=== PATIENT | male | born 1955 | race African-American/Black ===

== ENCOUNTER 2016-06-10 01:49 | Emergency (ER) | payer OTHER ==
[2016-06-10] MEDS ORDERED: Nitroglycerin 0.4 MG TAB (25 Tab Bottle) ONE (01:57)
[2016-06-10] MEDS ORDERED: Sodium Chloride 0.9% 1,000 ML ONE (02:12)
[2016-06-10 02:16] LABS: #Basophils 0.1 thou/uL (0.0-0.2); #Eosinphils 0.1 thou/uL (0.0-0.7); #Lymphocytes 3.1 thou/uL (1.20-3.40); #Monocytes 0.5 thou/uL (0.11-0.59); #Neutrophils 4.6 thou/uL (1.40-6.50); %Basophils 1.5 % (0.0-1.0); %Eosinophils 1.3 % (0.0-10.0); %Monocytes 5.4 % (0.0-10.0); %Neutrophils 54.7 % (42.0-75.0); Hemoglobin 15.5 g/dL (14.0-18.0); Mean Corpuscular HGB CONC 33.1 g/dL (32.0-36.0); Mean Corpuscular Volume 93.6 fl (80.0-94.0); Mean Platelet Volume 9.3 fL (7.4-10.4); Platelet Count 200 thou/uL (130-400); RBC Distribution Width 12.2 % (11.5-14.5); White Blood Cell (WBC) Count 8.4 thou/uL (4.8-10.8)
[2016-06-10 02:29] LABS: ALT (SGPT) 25 U/L (0-55); AST (SGOT) 35 U/L (5-34); Albumin 3.8 g/dL (3.4-4.8); Alkaline Phosphatase 103 U/L (40-150); Anion Gap 16 mmol/L (10-20); BUN (Urea Nitrogen) 11 mg/dL (8.4-25.7); Bilirubin, Total 0.4 mg/dL (0.2-1.2); CK (CPK) 673 U/L (30-200); Calc. Creatinine Clearance 0 mL/min (70-130); Calcium 8.9 mg/dL (7.8-10.44); Carbon Dioxide 21 mmol/L (23-31); Chloride 104 mmol/L (98-107); Estimated GFR-MDRD 59; Globulin 3.9 g/dL (2.4-3.5); Glucose 96 mg/dL (80-115); Potassium 3.8 mmol/L (3.5-5.1); Protein, Total 7.7 g/dL (5.8-8.1); Sodium 137 mmol/L (136-145)
[2016-06-10 02:38] LABS: CKMB 29.9 ng/mL (0-6.6); Troponin I 1.358 ng/mL (< 0.028)
[2016-06-10 02:48] LABS: PTT 26.4 SEC (22.9-36.1); Prothrombin Time 13.1 SEC (12.0-14.7)
[2016-06-10] MEDS ORDERED: Heparin 5,000 UNITS/ML VIAL ONE ×2 (02:58→03:09)
[2016-06-10] MEDS ORDERED: Heparin 20,000 units/D5W 500 ML ONE (02:59)
--- NOTE | 2016-06-10 09:01 | RAD ---
PORTABLE CHEST 1 VIEW: Date: 06/10/16 Time: 0203 hours HISTORY: Chest pain, coronary artery disease, hypertension. FINDINGS: Comparison made with exam of 08/17/15. The heart size is normal. The aorta is tortuous. The lungs are well expanded without focal areas of consolidation, pneumothorax, or pleural effusions. IMPRESSION: No radiographic evidence of acute cardiopulmonary process. POS: [facility]
== END 2016-06-10 05:45 | disposition short-term general hospital (02) ==
LOC: NAV ERS 01:49
DX: I21.4 Non-ST elevation (NSTEMI) myocardial infarction (principal); E78.5 Hyperlipidemia, unspecified; E78.00 Pure hypercholesterolemia, unspecified; I10 Essential (primary) hypertension; I25.10 Atherosclerotic heart disease of native coronary artery without angina pectoris; Z79.899 Other long term (current) drug therapy
CPT/HCPCS: 71010; 80053; 82553; 84484; 85025; 85610; 85730; 93005; 96361; 96365; 96366; 96375; J1644; J2270; J7050

== ENCOUNTER 2016-06-26 09:51 | Emergency (ER) | payer OTHER | END 2016-06-26 10:40 | disposition home or self-care (01) | LOC: NAV ERS 09:51 | DX: G89.18 Other acute postprocedural pain (principal); I25.2 Old myocardial infarction; I25.10 Atherosclerotic heart disease of native coronary artery without angina pectoris; E78.5 Hyperlipidemia, unspecified; I10 Essential (primary) hypertension; Z87.891 Personal history of nicotine dependence; Z79.82 Long term (current) use of aspirin; Z79.899 Other long term (current) drug therapy | CPT/HCPCS: 99284 ==

== ENCOUNTER 2016-11-27 08:05 | Emergency (ER) | payer OTHER ==
[2016-11-27] MEDS ORDERED: cefTRIAXone\\ROCEPHIN 2 GM VIAL ONE (08:40)
[2016-11-27] MEDS ORDERED: methylPREDNISolone Sod Succ/PF 125 MG/2 ML VIAL ONE (08:41)
[2016-11-27] MEDS ORDERED: Sodium Chloride 0.9% 100 ML ONE (08:42)
[2016-11-27] MEDS ORDERED: Sodium Chloride 0.9% 0 ML ONE (08:42)
[2016-11-27 08:43] LABS: #Basophils 0.1 thou/uL (0.0-0.2); #Eosinphils 0.2 thou/uL (0.0-0.7); #Lymphocytes 3.4 thou/uL (1.20-3.40); #Monocytes 0.7 thou/uL (0.11-0.59); #Neutrophils 3.5 thou/uL (1.40-6.50); %Basophils 1.3 % (0.0-1.0); %Eosinophils 2.3 % (0.0-10.0); %Lymphocytes 43.3 % (21.0-51.0); %Monocytes 8.9 % (0.0-10.0); %Neutrophils 44.3 % (42.0-75.0); Hemoglobin 15.5 g/dL (14.0-18.0); Mean Corpuscular HGB CONC 32.1 g/dL (32.0-36.0); Mean Corpuscular Hemoglobin 28.6 pg (27.0-31.0); Mean Corpuscular Volume 89.1 fl (80.0-94.0); Mean Platelet Volume 7.6 fL (7.4-10.4); Platelet Count 284 thou/uL (130-400); RBC Distribution Width 13.9 % (11.5-14.5); Red Blood Cell (RBC) Count 5.44 mill/uL (4.70-6.10); White Blood Cell (WBC) Count 7.9 thou/uL (4.8-10.8)
[2016-11-27 08:55] LABS: Anion Gap 13 mmol/L (10-20); BUN (Urea Nitrogen) 15 mg/dL (8.4-25.7); Calc. Creatinine Clearance 0 mL/min (70-130); Calcium 9.5 mg/dL (7.8-10.44); Carbon Dioxide 25 mmol/L (23-31); Chloride 109 mmol/L (98-107); Estimated GFR-MDRD 55; Glucose 115 mg/dL (80-115); Potassium 4.3 mmol/L (3.5-5.1); Sodium 143 mmol/L (136-145)
--- NOTE | 2016-11-27 09:03 | RAD ---
AP VIEW OF THE CHEST: INDICATION: Cough with hemoptysis. COMPARISON: Prior exam dated 06/15/16. IMPRESSION: No acute cardiopulmonary abnormality. COMMENTS: Midline sternotomy changes are stable. Previously seen right subclavian central venous catheter is removed. No airspace consolidation, pleural effusion, or pneumothorax is evident. No acute osseous abnormality is evident. POS: [facility]
== END 2016-11-27 09:30 | disposition home or self-care (01) ==
LOC: NAV ERS 08:05
DX: J20.9 Acute bronchitis, unspecified (principal); I25.2 Old myocardial infarction; I25.10 Atherosclerotic heart disease of native coronary artery without angina pectoris; E78.5 Hyperlipidemia, unspecified; I10 Essential (primary) hypertension; Z87.891 Personal history of nicotine dependence; Z79.82 Long term (current) use of aspirin; Z79.899 Other long term (current) drug therapy
CPT/HCPCS: 36415; 71010; 80048; 85025; 96365; 96375; J0696; J2930; J7050; J7620

== ENCOUNTER 2017-05-19 12:33 | Emergency (ER) | payer OTHER ==
[2017-05-19] MEDS ORDERED: Colchicine 0.6 MG TAB ONE ×2 (12:49)
== END 2017-05-19 12:59 | disposition home or self-care (01) ==
LOC: NAV ERS 12:33
DX: M10.9 Gout, unspecified (principal); K21.9 Gastro-esophageal reflux disease without esophagitis; I25.2 Old myocardial infarction; I25.10 Atherosclerotic heart disease of native coronary artery without angina pectoris; E78.5 Hyperlipidemia, unspecified; I10 Essential (primary) hypertension; G47.30 Sleep apnea, unspecified; Z79.82 Long term (current) use of aspirin; Z79.899 Other long term (current) drug therapy
CPT/HCPCS: 99283

== ENCOUNTER 2018-08-27 06:31 | Emergency (ER) | payer OTHER ==
[2018-08-27] MEDS ORDERED: Adacel (T-DAP) 0.5 ML SYRINGE ONE (06:51)
[2018-08-27] MEDS ORDERED: Lidocaine 1% (PF) 30 ML VIAL ONE (07:18)
[2018-08-27] MEDS ORDERED: Bacitracin 1 PK ONE (07:39)
--- NOTE | 2018-08-27 08:30 | RAD ---
RIGHT FINGER THREE VIEWS: INDICATIONS: Smashed index finger between car ramp. COMPARISON: None. FINDINGS: There is a comminuted distal tuft fracture involving the right index finger. There is fracture exten aram up to the base of the distal phalanx, without definite extension into the DIP articular surface. IMPRESSION: Comminuted distal phalangeal fracture of the right index finger. POS: [facility]
== END 2018-08-27 08:02 | disposition home or self-care (01) ==
LOC: NAV ERS 06:31
DX: S67.190A Crushing injury of right index finger, initial encounter (principal); S62.660A Nondisplaced fracture of distal phalanx of right index finger, initial encounter for closed fracture; K21.9 Gastro-esophageal reflux disease without esophagitis; I25.2 Old myocardial infarction; I25.10 Atherosclerotic heart disease of native coronary artery without angina pectoris; E78.5 Hyperlipidemia, unspecified; I10 Essential (primary) hypertension; G47.30 Sleep apnea, unspecified; Z79.899 Other long term (current) drug therapy; Z79.82 Long term (current) use of aspirin; W23.0XXA Caught, crushed, jammed, or pinched between moving objects, initial encounter
CPT/HCPCS: 12001; 90471; 90715; J2001

== ENCOUNTER 2018-09-12 15:51 | Emergency (ER) | payer OTHER ==
[2018-09-12] MEDS ORDERED: Bacitracin 1 PK ONE (16:13)
== END 2018-09-12 16:20 | disposition home or self-care (01) ==
LOC: NAV ERS 15:51
DX: S61.210D Laceration without foreign body of right index finger without damage to nail, subsequent encounter (principal); K21.9 Gastro-esophageal reflux disease without esophagitis; I25.2 Old myocardial infarction; I25.10 Atherosclerotic heart disease of native coronary artery without angina pectoris; E78.5 Hyperlipidemia, unspecified; I10 Essential (primary) hypertension; G47.30 Sleep apnea, unspecified; Z79.899 Other long term (current) drug therapy; Z79.82 Long term (current) use of aspirin

== ENCOUNTER 2019-03-12 11:13 | Emergency (ER) | payer OTHER ==
[2019-03-12] MEDS ORDERED: Ondansetron PF 4 MG/2 ML Vial ONE (11:39)
--- NOTE | 2019-03-12 12:17 | RAD ---
AP CHEST: Date: 03/12/2019 INDICATION: Dyspnea. COMPARISON: 11/27/16. FINDINGS: Lungs are clear of infiltrate. Vascular markings normal. Heart size within normal range. Postop liz otomy changes are noted. IMPRESSION: No acute lung process. POS: [facility]
[2019-03-12 12:23] LABS: Lactic Acid 2.3 mmol/L (0.5-2.2)
[2019-03-12 12:26] LABS: ALT (SGPT) 24 U/L (8-55); AST (SGOT) 27 U/L (5-34); Albumin 3.8 g/dL (3.4-4.8); Alkaline Phosphatase 85 U/L (40-110); Anion Gap 15 mmol/L (10-20); BUN (Urea Nitrogen) 16 mg/dL (8.4-25.7); Bilirubin, Total 0.5 mg/dL (0.2-1.2); Calc. Creatinine Clearance 0 mL/min (70-130); Calcium 9.4 mg/dL (7.8-10.44); Carbon Dioxide 24 mmol/L (23-31); Chloride 104 mmol/L (98-107); Estimated GFR-MDRD 55; Globulin 3.6 g/dL (2.4-3.5); Glucose 120 mg/dL (80-115); Potassium 4.4 mmol/L (3.5-5.1); Protein, Total 7.4 g/dL (5.8-8.1); Sodium 139 mmol/L (136-145)
[2019-03-12 12:31] LABS: Hemoglobin 15.1 g/dL (14.0-18.0); MDiff Complete? YES; Mean Corpuscular HGB CONC 31.9 g/dL (32.0-36.0); Mean Corpuscular Hemoglobin 30.1 pg (27.0-31.0); Mean Corpuscular Volume 94.5 fL (78.0-98.0); Mean Platelet Volume 8.9 fL (7.4-10.4); Platelet Count 202 thou/uL (130-400); Red Blood Cell (RBC) Count 5.01 mill/uL (4.70-6.10); White Blood Cell (WBC) Count 5.9 thou/uL (4.8-10.8)
[2019-03-12 12:32] LABS: Lymphocytes 47 % (21-51); Monocytes 4 % (0-10); Neutrophil 49 % (42-75); Platelet Morphology Comment Appears Adequate
[2019-03-12] MEDS ORDERED: Benzonatate 100 MG CAP ONE (12:59)
[2019-03-12] MEDS ORDERED: Azithromycin 250 MG TAB ONE (12:59)
[2019-03-12] MEDS ORDERED: predniSONE 20 MG TAB ONE (12:59)
[2019-03-12 13:24] LABS: CKMB 15.2 ng/mL (0-6.6)
== END 2019-03-12 13:21 | disposition home or self-care (01) ==
LOC: NAV ERS 11:13
DX: R05 Cough (principal); E86.0 Dehydration; R79.89 Other specified abnormal findings of blood chemistry; R11.10 Vomiting, unspecified; K21.9 Gastro-esophageal reflux disease without esophagitis; I25.2 Old myocardial infarction; I25.10 Atherosclerotic heart disease of native coronary artery without angina pectoris; E78.5 Hyperlipidemia, unspecified; E78.00 Pure hypercholesterolemia, unspecified; I10 Essential (primary) hypertension; G47.30 Sleep apnea, unspecified; Z77.22 Contact with and (suspected) exposure to environmental tobacco smoke (acute) (chronic); Z95.1 Presence of aortocoronary bypass graft; Z79.82 Long term (current) use of aspirin; Z79.899 Other long term (current) drug therapy
CPT/HCPCS: 71045; 80053; 82553; 83605; 84484; 85025; 93005; 94640; 94760; 96374; J2405; J7512; J7620

== ENCOUNTER 2019-08-22 06:23 | Emergency (ER) | payer OTHER ==
[2019-08-22] MEDS ORDERED: Propofol 1,000 MG/100 ML VIAL IV ONE (06:58)
[2019-08-22] MEDS ORDERED: Magnesium 2 GM/50 ML BAG (IN WATER) ONE (07:11)
[2019-08-22 07:17] LABS: INR-International Normal Ratio 1.1; PTT 25.3 sec (22.9-36.1); Prothrombin Time 14.3 sec (12.0-14.7)
[2019-08-22 07:19] LABS: #Basophils 0.1 thou/uL (0.0-0.2); #Eosinphils 0.4 thou/uL (0.0-0.7); #Monocytes 0.6 thou/uL (0.11-0.59); #Neutrophils 3.3 thou/uL (1.40-6.50); %Eosinophils 2.7 % (0.0-10.0); %Lymphocytes 66.9 % (21.0-51.0); %Monocytes 4.8 % (0.0-10.0); %Neutrophils 24.6 % (42.0-75.0); Hemoglobin 15.2 g/dL (14.0-18.0); Mean Corpuscular HGB CONC 30.9 g/dL (32.0-36.0); Mean Corpuscular Hemoglobin 30.9 pg (27.0-31.0); Mean Corpuscular Volume 99.9 fL (78.0-98.0); Mean Platelet Volume 9.4 fL (7.4-10.4); Platelet Count 211 thou/uL (130-400); RBC Distribution Width 12.5 % (11.5-14.5); Red Blood Cell (RBC) Count 4.93 mill/uL (4.70-6.10); White Blood Cell (WBC) Count 13.5 thou/uL (4.8-10.8)
--- NOTE | 2019-08-22 07:19 | RAD ---
PORTABLE CHEST: Date: 08/22/2019 PROVIDED CLINICAL HISTORY: Chest pain. FINDINGS: Comparison with 03/12/2019. The cardiac silhouette appears enlarged, which may be at least partially on the basis of portable papito hnique. Median sternotomy changes are again seen. Endotracheal tube is present, the tip of which proj ects proximal to the kenney. No definite focal consolidation, pleural fluid, or pneumothorax apparent . IMPRESSION: No definite evidence for an acute cardiopulmonary process. POS: [facility]
[2019-08-22 07:20] LABS: Platelet Morphology Comment Appears Adequate
[2019-08-22 07:32] LABS: ALT (SGPT) 51 U/L (8-55); AST (SGOT) 91 U/L (5-34); Albumin 3.6 g/dL (3.4-4.8); Alkaline Phosphatase 94 U/L (40-110); Anion Gap 24 mmol/L (10-20); BUN (Urea Nitrogen) 14 mg/dL (8.4-25.7); Bilirubin, Total 0.4 mg/dL (0.2-1.2); CK (CPK) 542 U/L (30-200); Calc. Creatinine Clearance 0 mL/min (70-130); Calcium 8.6 mg/dL (7.8-10.44); Carbon Dioxide 14 mmol/L (23-31); Chloride 106 mmol/L (98-107); Estimated GFR-MDRD 40; Globulin 3.5 g/dL (2.4-3.5); Glucose 202 mg/dL (80-115); Magnesium 2.3 mg/dL (1.6-2.6); Potassium 3.3 mmol/L (3.5-5.1); Protein, Total 7.1 g/dL (5.8-8.1); Sodium 141 mmol/L (136-145)
[2019-08-22 07:40] LABS: CKMB 15.5 ng/mL (0-6.6)
[2019-08-22] MEDS ORDERED: Sodium Chloride 0.9% 1,000 ML ONE (08:11)
[2019-08-22] MEDS ORDERED: EPINEPHrine 1 MG/10 ML Abboject SYRINGE ONE (09:00)
[2019-08-22] MEDS ORDERED: Amiodarone 150 MG/3 ML VIAL ONE (09:00)
[2019-08-22] MEDS ORDERED: Rocuronium Bromide 10 MG/ML (10ML VIAL) ONE (09:00)
[2019-08-22] MEDS ORDERED: AMIODARONE 150 MG/100 ML ONE (09:00)
== END 2019-08-22 07:51 | disposition short-term general hospital (02) ==
LOC: NAV ERS 06:23
DX: I49.01 Ventricular fibrillation (principal); I47.2 Ventricular tachycardia; I46.2 Cardiac arrest due to underlying cardiac condition; I25.10 Atherosclerotic heart disease of native coronary artery without angina pectoris; I25.2 Old myocardial infarction
CPT/HCPCS: 31500; 51702; 71045; 80053; 82550; 82553; 83735; 84484; 85025; 85610; 85730; 92950; 93005; 94760; 96365; 96374; 96375; J0171; J0282; J2704; J3475; J7050

== ENCOUNTER 2019-09-01 09:21 | Emergency (ER) | payer OTHER ==
--- NOTE | 2019-09-01 10:00 | RAD ---
Frontal radiograph chest 3 views of the right RIBS: 09/01/2019 COMPARISON: Chest radiograph 08/28/2019 HISTORY: Pain FINDINGS: The frontal chest radiograph demonstrates midline sternotomy wires and a dual lead transven ous AICD. No pneumothorax or pleural fluid. No focal consolidation or alveolar edema. 3 dedicated right rib images demonstrate no displaced right-sided rib fracture. IMPRESSION: No acute findings. If chest wall pain persists, CT may be beneficial.
[2019-09-01 10:19] LABS: #Basophils 0.1 thou/uL (0.0-0.2); #Eosinphils 0.4 thou/uL (0.0-0.7); #Lymphocytes 1.7 thou/uL (1.20-3.40); #Monocytes 0.9 thou/uL (0.11-0.59); #Neutrophils 5.6 thou/uL (1.40-6.50); %Basophils 0.6 % (0.0-1.0); %Eosinophils 4.7 % (0.0-10.0); %Lymphocytes 19.8 % (21.0-51.0); %Monocytes 10.1 % (0.0-10.0); %Neutrophils 64.8 % (42.0-75.0); Mean Corpuscular HGB CONC 31.5 g/dL (32.0-36.0); Mean Corpuscular Hemoglobin 30.7 pg (27.0-31.0); Mean Corpuscular Volume 97.6 fL (78.0-98.0); Mean Platelet Volume 9.2 fL (7.4-10.4); Platelet Count 277 thou/uL (130-400); RBC Distribution Width 11.8 % (11.5-14.5); Red Blood Cell (RBC) Count 4.56 mill/uL (4.70-6.10); White Blood Cell (WBC) Count 8.7 thou/uL (4.8-10.8)
[2019-09-01 10:33] LABS: ALT (SGPT) 29 U/L (8-55); AST (SGOT) 26 U/L (5-34); Albumin 3.2 g/dL (3.4-4.8); Alkaline Phosphatase 111 U/L (40-110); Anion Gap 14 mmol/L (10-20); BUN (Urea Nitrogen) 16 mg/dL (8.4-25.7); Bilirubin, Total 0.5 mg/dL (0.2-1.2); Calc. Creatinine Clearance 0 mL/min (70-130); Calcium 8.8 mg/dL (7.8-10.44); Carbon Dioxide 25 mmol/L (23-31); Chloride 104 mmol/L (98-107); Estimated GFR-MDRD 54; Globulin 3.4 g/dL (2.4-3.5); Glucose 111 mg/dL (80-115); Potassium 3.7 mmol/L (3.5-5.1); Protein, Total 6.6 g/dL (5.8-8.1); Sodium 139 mmol/L (136-145)
[2019-09-01 11:02] LABS: CKMB 0.4 ng/mL (0-6.6)
== END 2019-09-01 11:17 | disposition home or self-care (01) ==
LOC: NAV ERS 09:21
DX: S23.41XA Sprain of ribs, initial encounter (principal); I25.10 Atherosclerotic heart disease of native coronary artery without angina pectoris; I25.2 Old myocardial infarction; K21.9 Gastro-esophageal reflux disease without esophagitis; I10 Essential (primary) hypertension; G47.30 Sleep apnea, unspecified; Z79.82 Long term (current) use of aspirin; Z79.899 Other long term (current) drug therapy; Z79.891 Long term (current) use of opiate analgesic; X58.XXXA Exposure to other specified factors, initial encounter
CPT/HCPCS: 80053; 82553; 84484; 85025; 93005

== ENCOUNTER 2019-12-23 15:19 | Emergency (ER) | payer MEDICARE, OTHER ==
[2019-12-23] MEDS ORDERED: Fluorescein Opthalmic Strip ONE (15:56)
[2019-12-23] MEDS ORDERED: Tetracaine HCl 0.5% Ophth Soln 2 ML Bottle ONE (15:56)
== END 2019-12-23 16:50 | disposition home or self-care (01) ==
LOC: NAV ERS 15:19
DX: H10.9 Unspecified conjunctivitis (principal); I25.10 Atherosclerotic heart disease of native coronary artery without angina pectoris; I50.9 Heart failure, unspecified; K21.9 Gastro-esophageal reflux disease without esophagitis; I11.0 Hypertensive heart disease with heart failure; Z79.899 Other long term (current) drug therapy; Z79.82 Long term (current) use of aspirin
CPT/HCPCS: 99283

== ENCOUNTER 2020-03-23 13:57 | Emergency (ER) | payer OTHER ==
[2020-03-23] MEDS ORDERED: Acetaminophen/Codeine 30-300mg Tablet ONE (14:18)
--- NOTE | 2020-03-23 14:40 | RAD ---
RIGHT KNEE FOUR VIEWS: 03/23/20 HISTORY: Knee pain. A bipartite patella is noted. No fracture or joint effusion. IMPRESSION: Bipartite patella. No acute findings. POS: [facility]
== END 2020-03-23 15:38 | disposition home or self-care (01) ==
LOC: NAV ERS 13:57
DX: S83.411A Sprain of medial collateral ligament of right knee, initial encounter (principal); G47.30 Sleep apnea, unspecified; I25.10 Atherosclerotic heart disease of native coronary artery without angina pectoris; I25.2 Old myocardial infarction; K21.9 Gastro-esophageal reflux disease without esophagitis; I10 Essential (primary) hypertension; Z79.82 Long term (current) use of aspirin; Z79.899 Other long term (current) drug therapy; X58.XXXA Exposure to other specified factors, initial encounter

== ENCOUNTER 2020-07-20 09:21 | Emergency (ER) | payer MEDICARE, OTHER ==
[2020-07-20] MEDS ORDERED: Aspirin Chewable 81 MG TAB ONE (10:34)
[2020-07-20] MEDS ORDERED: Albuterol Sulfate 2.5 mg/3 ml Neb ONE (10:34)
[2020-07-20 10:48] LABS: ALT (SGPT) 46 U/L (8-55); AST (SGOT) 32 U/L (5-34); Albumin 3.6 g/dL (3.4-4.8); Alkaline Phosphatase 128 U/L (40-110); Anion Gap 13 mmol/L (10-20); BUN (Urea Nitrogen) 12 mg/dL (8.4-25.7); Bilirubin, Total 0.9 mg/dL (0.2-1.2); Calc. Creatinine Clearance 0 mL/min (70-130); Calcium 8.7 mg/dL (7.8-10.44); Carbon Dioxide 25 mmol/L (23-31); Chloride 106 mmol/L (98-107); Globulin 3.5 g/dL (2.4-3.5); Glucose 109 mg/dL (80-115); Potassium 4.1 mmol/L (3.5-5.1); Protein, Total 7.1 g/dL (5.8-8.1); Sodium 140 mmol/L (136-145)
[2020-07-20 11:08] LABS: #Basophils 0.1 thou/uL (0.0-0.2); #Eosinphils 0.1 thou/uL (0.0-0.7); #Lymphocytes 2.2 thou/uL (1.20-3.40); #Monocytes 0.7 thou/uL (0.11-0.59); #Neutrophils 4.3 thou/uL (1.40-6.50); %Basophils 1.4 % (0.0-1.0); %Eosinophils 1.6 % (0.0-10.0); %Lymphocytes 29.9 % (21.0-51.0); %Monocytes 9.8 % (0.0-10.0); %Neutrophils 57.3 % (42.0-75.0); Mean Corpuscular Hemoglobin 29.4 pg (27.0-31.0); Mean Corpuscular Volume 98.2 fL (78.0-98.0); Mean Platelet Volume 9.8 fL (7.4-10.4); Platelet Count 197 thou/uL (130-400); RBC Distribution Width 12.6 % (11.5-14.5); Red Blood Cell (RBC) Count 5.08 mill/uL (4.70-6.10); White Blood Cell (WBC) Count 7.5 thou/uL (4.8-10.8)
== END 2020-07-20 12:38 | disposition short-term general hospital (02) ==
LOC: NAV ERS 09:21
DX: I11.0 Hypertensive heart disease with heart failure (principal); I50.9 Heart failure, unspecified; R79.89 Other specified abnormal findings of blood chemistry; G47.30 Sleep apnea, unspecified; K21.9 Gastro-esophageal reflux disease without esophagitis; I25.2 Old myocardial infarction; Z79.82 Long term (current) use of aspirin; Z79.899 Other long term (current) drug therapy
CPT/HCPCS: 71045; 80053; 82553; 83880; 84443; 84484; 85025; 85379; 87070; 87205; 93005; J7611

== ENCOUNTER 2020-12-13 10:50 | Emergency (ER) | payer MEDICARE ==
[~2020-12-13 10:50] MED LIST: Iopamidol 370 76% 100 ML VIAL ONE
[2020-12-13 11:51] LABS: #Basophils 0.1 thou/uL (0.0-0.2); #Eosinphils 0.2 thou/uL (0.0-0.7); #Lymphocytes 3.2 thou/uL (1.20-3.40); #Monocytes 0.7 thou/uL (0.11-0.59); #Neutrophils 3.9 thou/uL (1.40-6.50); %Basophils 0.8 % (0.0-1.0); %Eosinophils 2.4 % (0.0-10.0); %Lymphocytes 39.4 % (21.0-51.0); %Monocytes 8.9 % (0.0-10.0); %Neutrophils 48.6 % (42.0-75.0); Hemoglobin 15.1 g/dL (14.0-18.0); Mean Corpuscular HGB CONC 32.1 g/dL (32.0-36.0); Mean Corpuscular Hemoglobin 31.8 pg (27.0-31.0); Mean Corpuscular Volume 99.1 fL (78.0-98.0); Mean Platelet Volume 8.5 fL (7.4-10.4); Platelet Count 208 thou/uL (130-400); RBC Distribution Width 11.7 % (11.5-14.5); Red Blood Cell (RBC) Count 4.75 mill/uL (4.70-6.10)
[2020-12-13] MEDS ORDERED: Fentanyl 100 MCG/2 ML VIAL ONE (11:54)
[2020-12-13 12:05] LABS: ALT (SGPT) 16 U/L (8-55); AST (SGOT) 21 U/L (5-34); Albumin 3.5 g/dL (3.4-4.8); Alkaline Phosphatase 119 U/L (40-110); Anion Gap 11 mmol/L (10-20); BUN (Urea Nitrogen) 16 mg/dL (8.4-25.7); Bilirubin, Total 0.7 mg/dL (0.2-1.2); Calc. Creatinine Clearance 0 mL/min (70-130); Calcium 9.1 mg/dL (7.8-10.44); Carbon Dioxide 26 mmol/L (23-31); Chloride 107 mmol/L (98-107); Globulin 3.6 g/dL (2.4-3.5); Glucose 106 mg/dL (80-115); Potassium 4.2 mmol/L (3.5-5.1); Protein, Total 7.1 g/dL (5.8-8.1); Sodium 140 mmol/L (136-145)
== END 2020-12-13 15:25 | disposition home or self-care (01) ==
LOC: NAV ERS 10:50
DX: K42.9 Umbilical hernia without obstruction or gangrene (principal); G47.30 Sleep apnea, unspecified; I25.10 Atherosclerotic heart disease of native coronary artery without angina pectoris; I25.2 Old myocardial infarction; K21.9 Gastro-esophageal reflux disease without esophagitis; I10 Essential (primary) hypertension; Z79.82 Long term (current) use of aspirin; Z79.899 Other long term (current) drug therapy; Z79.891 Long term (current) use of opiate analgesic
CPT/HCPCS: 74177; 80053; 85025; J3010; Q9967

== ENCOUNTER 2021-02-23 10:07 | Emergency (ER) | payer MEDICARE, OTHER ==
[2021-02-23] MEDS ORDERED: Ibuprofen 200 MG TAB ONE (10:55)
== END 2021-02-23 11:00 | disposition home or self-care (01) ==
LOC: NAV ERS 10:07
DX: K04.7 Periapical abscess without sinus (principal); I10 Essential (primary) hypertension; I25.10 Atherosclerotic heart disease of native coronary artery without angina pectoris; I25.2 Old myocardial infarction; K21.9 Gastro-esophageal reflux disease without esophagitis; Z79.899 Other long term (current) drug therapy
CPT/HCPCS: 99282

== ENCOUNTER 2022-01-15 10:25 | Emergency (ER) | payer MEDICARE, OTHER ==
[2022-01-15] MEDS ORDERED: Acetaminophen 500 MG TAB ONE (12:06)
[2022-01-15 12:07] LABS: Hemoglobin 13.8 g/dL (14.0-18.0); Mean Corpuscular HGB CONC 32.7 g/dL (32.0-36.0); Mean Corpuscular Hemoglobin 32.4 pg (27.0-31.0); Mean Corpuscular Volume 99.2 fl (78.0-98.0); Mean Platelet Volume 7.9 fL (7.4-10.4); Platelet Count 167 10x3/uL (130-400); RBC Distribution Width 12.7 % (11.5-14.5); Red Blood Cell (RBC) Count 4.26 mill/uL (4.70-6.10); White Blood Cell (WBC) Count 5.1 10x3/uL (4.8-10.8)
[2022-01-15 12:08] LABS: MDiff Complete? YES; Manual Diff?? YES
[2022-01-15 12:26] LABS: ALT (SGPT) 32 U/L (8-55); AST (SGOT) 42 U/L (5-34); Albumin 3.8 g/dL (3.4-4.8); Alkaline Phosphatase 154 U/L (40-110); Anion Gap 14 mmol/L (10-20); BUN (Urea Nitrogen) 23 mg/dL (8.4-25.7); Bilirubin, Total 0.8 mg/dL (0.2-1.2); Calc. Creatinine Clearance 0 mL/min (70-130); Calcium 9.3 mg/dL (7.8-10.44); Carbon Dioxide 23 mmol/L (23-31); Chloride 104 mmol/L (98-107); Estimated GFR 49; Globulin 3.3 g/dL (2.4-3.5); Glucose 93 mg/dL (80-115); Potassium 4.5 mmol/L (3.5-5.1); Protein, Total 7.1 g/dL (5.8-8.1); Sodium 136 mmol/L (136-145)
[2022-01-15 12:35] LABS: Band 1 % (5-11); Lymphocytes 21 % (21-51); Monocytes 14 % (0-10); Neutrophil 64 % (42-75); Platelet Morphology Comment Appears Adequate; Toxic Granulation SLIGHT; Vacuoles SLIGHT
[2022-01-15 12:44] LABS: CKMB 5.6 ng/mL (0-6.6)
[2022-01-15 12:53] LABS: SARS-CoV-2 NAA Rapid Test Not Detected (NotDetected)
[2022-01-15 13:21] LABS: Bilirubin Negative (Negative); Blood, Urine Trace (Negative); Clarity Slightly Cloudy (Clear); Glucose, Urine (Dipstick) Negative (Negative); Ketone, Urine Trace mg/dL (Negative); Leukocyte Negative (Negative); Nitrite Negative (Negative); Protein, Urine (Dipstick) 30 mg/dL (Neg-Trace); Specific Gravity, Urine 1.025 (1.005-1.030); Urobilinogen 0.2 mg/dL (Less than 2); pH, Urine 5.5 (5.0-9.0)
[2022-01-15 13:30] LABS: Bacteria/HPF 1+ HPF (None Seen); Squamous Epithelial 0-3 HPF (0-3); WBC/HPF 0-3 HPF (0-3)
[2022-01-15 13:31] LABS: Mucous/LPF 1+ LPF (<2+); Renal Epithelial 0-3 HPF (None Seen)
== END 2022-01-15 14:54 | disposition short-term general hospital (02) ==
LOC: NAV ERS 10:25
DX: R06.02 Shortness of breath (principal); I25.10 Atherosclerotic heart disease of native coronary artery without angina pectoris; K21.9 Gastro-esophageal reflux disease without esophagitis; I10 Essential (primary) hypertension; F17.210 Nicotine dependence, cigarettes, uncomplicated; Z20.822 Contact with and (suspected) exposure to COVID-19; Z79.899 Other long term (current) drug therapy
CPT/HCPCS: 71045; 80053; 81003; 81015; 82553; 83605; 83880; 84443; 84484; 85025; 85379; 87040; 87070; 87205; 93005; 94640; J7620

== ENCOUNTER 2022-10-10 04:48 | Emergency (ER) | payer MEDICARE ==
[2022-10-10] MEDS ORDERED: Lidocaine 1% w/Epinephrine 1:100K 20 ML VIAL ONE (05:06)
[2022-10-10] MEDS ORDERED: Lidocaine Viscous Sol 2% 15 ml UD Cup ONE (05:06)
[2022-10-10] MEDS ORDERED: Penicillin V Potassium 250 MG TAB ONE (05:33)
== END 2022-10-10 05:55 | disposition home or self-care (01) ==
LOC: NAV ERS 04:48
DX: K04.7 Periapical abscess without sinus (principal); K02.9 Dental caries, unspecified; K21.9 Gastro-esophageal reflux disease without esophagitis; I25.2 Old myocardial infarction; F17.210 Nicotine dependence, cigarettes, uncomplicated; Z79.899 Other long term (current) drug therapy; Z79.51 Long term (current) use of inhaled steroids
CPT/HCPCS: 41800

== ENCOUNTER 2022-12-15 09:48 | Emergency (ER) | payer MEDICARE ==
[2022-12-15 10:31] LABS: #Basophils 0.1 thou/uL (0.0-0.2); #Eosinphils 0.7 thou/uL (0.0-0.7); #Lymphocytes 1.8 thou/uL (1.20-3.40); #Monocytes 0.9 thou/uL (0.11-0.59); #Neutrophils 2.9 thou/uL (1.40-6.50); %Basophils 1.6 % (0.0-1.0); %Eosinophils 11.3 % (0.0-10.0); %Lymphocytes 27.8 % (21.0-51.0); %Monocytes 13.3 % (0.0-10.0); %Neutrophils 46.1 % (42.0-75.0); Hematocrit 40.5 % (42.0-52.0); Hemoglobin 12.8 g/dL (14.0-18.0); Mean Corpuscular HGB CONC 31.6 g/dL (32.0-36.0); Mean Corpuscular Hemoglobin 30.7 pg (27.0-31.0); Mean Corpuscular Volume 96.9 fl (78.0-98.0); Mean Platelet Volume 9.3 fL (7.4-10.4); Platelet Count 181 10x3/uL (130-400); RBC Distribution Width 13.3 % (11.5-14.5); Red Blood Cell (RBC) Count 4.18 mill/uL (4.70-6.10); White Blood Cell (WBC) Count 6.4 10x3/uL (4.8-10.8)
[2022-12-15 10:46] LABS: Troponin I 0.065 ng/mL (< 0.028)
[2022-12-15 10:48] LABS: ALT (SGPT) 18 U/L (8-55); AST (SGOT) 31 U/L (5-34); Albumin 3.8 g/dL (3.4-4.8); Alkaline Phosphatase 155 U/L (40-110); Anion Gap 17 mmol/L (10-20); BUN (Urea Nitrogen) 19 mg/dL (8.4-25.7); Bilirubin, Total 2.2 mg/dL (0.2-1.2); Calc. Creatinine Clearance 0 mL/min (70-130); Calcium 9.4 mg/dL (7.8-10.44); Carbon Dioxide 27 mmol/L (23-31); Chloride 96 mmol/L (98-107); Estimated GFR 28; Glucose 112 mg/dL (80-115); Magnesium 1.7 mg/dL (1.6-2.6); Potassium 4.4 mmol/L (3.5-5.1); Protein, Total 7.8 g/dL (5.8-8.1); Sodium 136 mmol/L (136-145)
[2022-12-15] MEDS ORDERED: Furosemide 40 MG/4 ML VIAL ONE (11:51)
[2022-12-15] MEDS ORDERED: Furosemide 20 MG/2 ML VIAL ONE (11:51)
[2022-12-15] MEDS ORDERED: Ipratropium/Albuterol 3 ML NEB ONE (12:31)
== END 2022-12-15 15:15 | disposition short-term general hospital (02) ==
LOC: NAV ERS 09:48
DX: I11.0 Hypertensive heart disease with heart failure (principal); I50.9 Heart failure, unspecified; N17.9 Acute kidney failure, unspecified; I25.10 Atherosclerotic heart disease of native coronary artery without angina pectoris; I25.2 Old myocardial infarction; G47.30 Sleep apnea, unspecified; K21.9 Gastro-esophageal reflux disease without esophagitis; Z87.891 Personal history of nicotine dependence; Z79.82 Long term (current) use of aspirin; Z79.01 Long term (current) use of anticoagulants; Z79.899 Other long term (current) drug therapy
CPT/HCPCS: 71045; 80053; 83735; 83880; 84484; 85025; 93005; 94760; 96374; J1940; J7620

== ENCOUNTER 2023-02-01 23:53 | Emergency (ER) | payer MEDICARE ==
[2023-02-02] MEDS ORDERED: Ipratropium/Albuterol 3 ML NEB ONE (00:07)
[2023-02-02] MEDS ORDERED: Benzonatate 100 MG CAP ONE (00:23)
[2023-02-02] MEDS ORDERED: methylPREDNISolone Sod Succ/PF 125 MG/2 ML VIAL ONE (00:23)
[2023-02-02 00:30] LABS: #Basophils 0.1 thou/uL (0.0-0.2); #Eosinphils 0.4 thou/uL (0.0-0.7); #Lymphocytes 2.2 thou/uL (1.20-3.40); #Monocytes 0.6 thou/uL (0.11-0.59); #Neutrophils 2.8 thou/uL (1.40-6.50); %Basophils 1.2 % (0.0-1.0); %Eosinophils 6.2 % (0.0-10.0); %Lymphocytes 36.1 % (21.0-51.0); %Monocytes 9.7 % (0.0-10.0); %Neutrophils 46.7 % (42.0-75.0); Hematocrit 37.5 % (42.0-52.0); Mean Corpuscular Hemoglobin 29.3 pg (27.0-31.0); Mean Corpuscular Volume 91.6 fl (78.0-98.0); Mean Platelet Volume 9.4 fL (7.4-10.4); Platelet Count 198 10x3/uL (130-400); Red Blood Cell (RBC) Count 4.09 mill/uL (4.70-6.10)
[2023-02-02] MEDS ORDERED: Azithromycin 250 MG TAB ONE (00:44)
[2023-02-02 00:46] LABS: Troponin I 0.042 ng/mL (< 0.028)
[2023-02-02 00:48] LABS: SARS-CoV-2 NAA Rapid Test Not Detected (NotDetected)
[2023-02-02 00:54] LABS: ALT (SGPT) 8 U/L (8-55); AST (SGOT) 20 U/L (5-34); Albumin 3.9 g/dL (3.4-4.8); Alkaline Phosphatase 154 U/L (40-110); Anion Gap 14 mmol/L (10-20); BUN (Urea Nitrogen) 17 mg/dL (8.4-25.7); Bilirubin, Total 1.1 mg/dL (0.2-1.2); Calc. Creatinine Clearance 0 mL/min (70-130); Calcium 9.3 mg/dL (7.8-10.44); Carbon Dioxide 28 mmol/L (23-31); Chloride 100 mmol/L (98-107); Estimated GFR 37; Globulin 3.6 g/dL (2.4-3.5); Glucose 104 mg/dL (80-115); Lipase 30 U/L (8-78); Potassium 4.4 mmol/L (3.5-5.1); Protein, Total 7.5 g/dL (5.8-8.1); Sodium 138 mmol/L (136-145)
[2023-02-02] MEDS ORDERED: Furosemide 40 MG/4 ML VIAL ONE (01:03)
[2023-02-02] MEDS ORDERED: Aspirin Chewable 81 MG TAB ONE (01:18)
== END 2023-02-02 02:34 | disposition short-term general hospital (02) ==
LOC: NAV ERS 23:53
DX: I11.0 Hypertensive heart disease with heart failure (principal); I50.9 Heart failure, unspecified; K21.9 Gastro-esophageal reflux disease without esophagitis; Z87.891 Personal history of nicotine dependence; Z79.899 Other long term (current) drug therapy; Z20.822 Contact with and (suspected) exposure to COVID-19; Z20.828 Contact with and (suspected) exposure to other viral communicable diseases
CPT/HCPCS: 71045; 80053; 83605; 83690; 83735; 83880; 84484; 85025; 87040; 87804 ×2; 93005; 96374; 96375; 99285; U0002; J1940; J2930; J7620